=== PATIENT | female | born 1960 | race American Indian/Alaskan Native ===

== ENCOUNTER 2019-07-24 11:21 | Emergency (ER) | payer MEDICARE ==
[2019-07-24 11:38] VITALS: BP 120/76
--- NOTE | 2019-07-24 13:10 | Emergency Department Report ---
ED Chest Pain HPI - General Chief Complaint: Chest Pain Stated Complaint: CHEST TIGHTING, BP CHECK Time Seen by Provider: 07/24/19 13:01 Source: patient, family Mode of arrival: Ambulatory Limitations: No Limitations - History of Present Illness Initial Comments: This is a 59-year-old female here reports that she has chest tightness with inspiration and she is out of her blood pressure medication. This started yesterday. Patient said she took blood pressure medication but has not taken. She denies any shortness of breath or cough. Denies any fever or chills. Her blood pressure in triage is 120/76. Denies any nausea or vomiting. Denies any runny nose. Has a history of bipolar disorder otherwise no respiratory or heart disease. No medication taken prior to coming to the emergency room. Patient said she is homeless and she does have a way to check her blood pressure so sometimes she likes to know what her blood pressure is at. Patient is daily smoker MD Complaint: chest pain Onset/Timin -: days(s) Onset: other (With inspiration) Pain Location: left chest Pain Radiation: none Severity: mild Severity scale (0 -10): 2 Quality: tightness Consistency: intermittent Improves With: nothing Worsens With: inspiration re: denies: nausea, vomting, diaphoresis, dyspnea, sense of impending doom Other Symptoms: denies: cough, fever, syncope, rash, acid taste in mouth, leg swelling, palpitations, burping Treatments Prior to Arrival: none - Related Data On Oral Contraceptives: No Allergies Allergy/AdvReac Type Severity Reaction Status Date / Time No Known Allergies Allergy Unverified 07/24/19 11:25 Heart Score - HEART Score History: Slightly suspicious EKG: Normal Age: 45-65 Risk factors: 1-2 risk factors Troponin: < normal limit HEART Score: 2 ED Review of Systems ROS: Stated complaint: CHEST TIGHTING, BP CHECK Other details as noted in HPI Constitutional: see HPI. denies: chills, fever, weakness Eyes: denies: eye discharge ENT: denies: ear pain, throat pain, congestion Respiratory: denies: cough, orthopnea, shortness of breath, SOB with exertion, SOB at rest, stridor, wheezing Cardiovascular: chest pain. denies: palpitations, dyspnea on exertion, orthopnea, edema, syncope, other Gastrointestinal: denies: abdominal pain, nausea, vomiting, diarrhea, constipation, hematemesis Genitourinary: denies: urgency, dysuria, frequency, hematuria Musculoskeletal: denies: back pain, joint swelling, arthralgia, myalgia Skin: denies: rash Neurological: denies: headache Psychiatric: denies: anxiety ED Past Medical Hx - Past Medical History Previous Medical History?: Yes Hx Hypertension: Yes (Not taking any medication) Hx Psychiatric Treatment: Yes (bipolar depression) - Surgical History Past Surgical History?: Yes Additional Surgical History: cevicle laser - Family History Family history: hypertension - Social History Smoking Status: Current Every Day Smoker Substance Use Type: None ED Physical Exam - General Limitations: No Limitations General appearance: alert, in no apparent distress - Head Head exam: Present: atraumatic, normocephalic, normal inspection - Eye Eye exam: Present: normal appearance, PERRL, EOMI Pupils: Present: normal accommodation - ENT ENT exam: Present: normal exam, normal orophraynx, mucous membranes moist, TM's normal bilaterally, normal external ear exam - Neck Neck exam: Present: normal inspection, full ROM. Absent: tenderness, lymphadenopathy - Respiratory Respiratory exam: Present: normal lung sounds bilaterally. Absent: respiratory distress, chest wall tenderness - Cardiovascular Cardiovascular Exam: Present: regular rate, normal rhythm, normal heart sounds. Absent: systolic murmur, diastolic murmur - GI/Abdominal GI/Abdominal exam: Present: soft, normal bowel sounds. Absent: distended, tenderness, guarding, rebound, rigid - Extremities Exam Extremities exam: Present: normal inspection, full ROM, normal capillary refill, other (No cce. + 2 pulses in all extremities, no neurovascular compromise). Absent: tenderness, pedal edema, joint swelling, calf tenderness - Neurological Exam Neurological exam: Present: alert, oriented X3, normal gait - Psychiatric Psychiatric exam: Present: normal affect, normal mood - Skin Skin exam: Present: warm, dry, intact, normal color. Absent: rash ED Course Vital Signs 07/24/19 11:37 Temperature 97.7 F Pulse Rate 98 H Respiratory 15 Rate Blood Pressure 120/76 [Left] O2 Sat by Pulse 97 Oximetry - Reevaluation(s) Reevaluation #1: 07/24/19 16:01 Patient remained stable throughout ED course. I discussed with her her results of x-ray, EKG and laboratory results. She voiced understanding. MIKE score - Mike Score Age > 65: (0) No Aspirin use within the Past 7 Days: (0) No 3 or more CAD Risk Factors: (0) No 2 or more Angina events in past 24 hrs: (0) No Known CAD with more than 50% Stenosis: (0) No Elevated Cardiac Markers: (0) No ST Deviation Greater than 0.5mm: (0) No MIKE Score: 0 ED Medical Decision Making - Lab Data Result diagrams: 07/24/19 13:38 Lab Results 07/24/19 Range/Units 13:38 Sodium 139 (137-145) mmol/L Potassium 4.0 (3.6-5.0) mmol/L Chloride 97.4 L (98-107) mmol/L Carbon Dioxide 24 (22-30) mmol/L Anion Gap 22 mmol/L BUN 14 (7-17) mg/dL Creatinine 1.2 (0.7-1.2) mg/dL Estimated GFR 56 ml/min BUN/Creatinine Ratio 12 % Glucose 100 (65-100) mg/dL Calcium 9.6 (8.4-10.2) mg/dL Troponin T < 0.010 (0.00-0.029) ng/mL - EKG Data -: EKG Interpreted by Me (Attending ED physician) EKG shows normal: sinus rhythm (98 bpm) Rate: normal - Radiology Data Radiology results: report reviewed Chest x-ray PA and lateral dictated by radiologist and report reviewed by [place] [address] XRay Report Signed Patient: GERTRUDE OCHOA MR#: [id number] 0 : 1960 Acct:[id number] Age/Sex: 59 / F ADM Date: 07/24/19 Loc: ED Attending Dr: Ordering Physician: MARGARITA MCLAIN Date of Service: 07/24/19 Procedure(s): XR chest routine 2V Accession Number(s): [id number] cc: MARGARITA MCLAIN Fluoro Time In Minutes: CHEST 2 VIEWS INDICATION / CLINICAL INFORMATION: CHEST PAIN. COMPARISON: None available. FINDINGS: SUPPORT DEVICES: None. HEART / MEDIASTINUM: No significant abnormality. LUNGS / PLEURA: No significant pulmonary or pleural abnormality. No pneumothorax. ADDITIONAL FINDINGS: No significant additional findings. IMPRESSION: 1. No acute findings. Signer Name: Cliff Chu MD Signed: 07/24/2019 1:29 PM Workstation Name: [id number] Transcribed By: JIM Dictated By: Cliff Chu MD Electronically Authenticated By: Cliff Chu MD Signed Date/Time: 07/24/191328 DD/ 28 TD/TT: - Medical Decision Making This is a 59-year-old female here presenting with atypical chest pain. Patient has a history of high blood pressure but her blood pressure in emergency room is stable. MIKE score 0 and cardiac risk score is a 2. Chest x-ray dictated by radiologist and report reviewed by myself and no acute findings. EKG with sinus rhythm at 98 bpm. Troponin negative and BNP is stable. I discussed results, diagnosis and treatment plan with patient I also discussed with her that she needs to follow-up with computer education professor and primary care physician. Patient is currently homeless and does not have a primary care physician. She reported that she can get to her primary care and I will refer patient to [facility]. Patient discharged home in stable condition. I discussed with her that her blood pressure is normal and I will not start her on any medication since she is not taking any medication but if her symptoms return to return to emergency room and she can stop by [facility] or [facility] to check her blood pressure at least twice a week. - Differential Diagnosis ACS, PNA, pleurisy, URI, Critical care attestation.: If time is entered above; I have spent that time in minutes in the direct care of this critically ill patient, excluding procedure time. ED Disposition Clinical Impression: Atypical chest pain Disposition: DC-01 TO HOME OR SELFCARE Is pt being admited?: No Does the pt Need Aspirin: No Condition: Stable Instructions: Chest Pain (ED), How to Take a Blood Pressure (ED), DASH Eating Plan (ED), Hypertension (ED), Low Sodium Diet (ED) Additional Instructions: Please follow-up with computer education professor and primary care physician as instructed Follow discharge instructions. Monitor your blood pressure as instructed Condition worsens, return to the emergency room Referrals: [facility] [Other] - 07/25/19 PAULA DUTTON MD [Staff Physician] - 07/26/19
--- NOTE | 2019-07-24 13:34 | XRay Report ---
CHEST 2 VIEWS INDICATION / CLINICAL INFORMATION: CHEST PAIN. COMPARISON: None available. FINDINGS: SUPPORT DEVICES: None. HEART / MEDIASTINUM: No significant abnormality. LUNGS / PLEURA: No significant pulmonary or pleural abnormality. No pneumothorax. ADDITIONAL FINDINGS: No significant additional findings. IMPRESSION: 1. No acute findings. Signer Name: Cliff Chu MD Signed: 07/24/2019 1:29 PM Workstation Name: [id number]
[2019-07-24 15:40] LABS: BUN/Creatinine Ratio 12; Blood Urea Nitrogen 14 mg/dL (7-17)
[2019-07-24 15:41] LABS: Calcium 9.6 mg/dL (8.4-10.2)
[2019-07-24 16:09] LABS: Hemolysis Index 6
== END 2019-07-24 16:19 | disposition home or self-care (01) ==
LOC: ED 11:21
DX: R07.89 Other chest pain (principal); R06.02 Shortness of breath; R05 Cough
CPT/HCPCS: 36415; 71046; 80048; 84484; 93005; 93010; 99283